=== PATIENT | female | born 1970 | race Caucasian/White ===

== ENCOUNTER → 2021-05-04 | Outpatient (CLI) | payer OTHER ==
[~2021-05-04] MED LIST: ASPIRIN ADULT L81 M1 PO; COREG6.25 MG PO; LIPITOR40 MG PO; ZESTRIL,PRINIVIL5 MG PO
== END | disposition home or self-care (01) ==
LOC: CARD 04-25 00:28
PROVIDERS: ATTEND Internal Medicine Cardiovascular Disease
DX: I25.10 Atherosclerotic heart disease of native coronary artery without angina pectoris (principal)

== ENCOUNTER → 2024-04-01 | Outpatient (CLI) | payer OTHER | END | disposition home or self-care (01) | LOC: CARD 12:00 | PROVIDERS: ATTEND Internal Medicine Cardiovascular Disease | DX: R06.02 Shortness of breath (principal) ==